=== PATIENT | male | born 1955 | race Caucasian/White ===

== ENCOUNTER 2019-08-03 14:56 | Emergency (ER) | payer OTHER, SELFPAY ==
[2019-08-03 14:58] VITALS: BP 157/75; PULSE 80; RESP 18; TEMP 36.6; O2SAT 100; BMI 29.4
--- NOTE | 2019-08-03 15:20 | ED.DCSUM_ITS ---
- ER Visit Summary Date of Service: 08/03/19 Chief Complaint: Left shoulder pain History of Present Illness: The patient is a 64 M who has left shoulder pain. He is been having this pain for 2 weeks. He denies any injuries. He has mostly aching but then intermittent sharp pains. Is worse with movement today. Nothing makes it better. He denies any neck pain. He also has some pain in the scapular region that radiates down to the left wrist. He has never had anything like this before. No chest pain or shortness of breath. His father did have early cardiac disease and of an PA. The patient currently denies any medical history and takes no medications Physical Examination: Vital signs reviewed. HEENT exam unremarkable. Heart is regular rate and rhythm without murmurs. Lungs are clear to auscultation. Abdomen is soft and nontender. Extremities reveal no edema. His left shoulder is nontender. He has full range of motion without any discomfort. His pulses are equal bilaterally. Skin exam normal. Neurologic exam normal. Test Results: Left shoulder x-ray normal. Troponin normal. EKG sinus rhythm with rate of 72. No ST changes. Normal intervals Emergency Department Course and Treatment: Patient declined any pain medications. His x-rays are negative. My concern is this could be a cervical radiculopathy. His cardiac work-up is negative. I will give him steroids for a couple of days to see if this will help. He will contact his doctor this week Treatment Plan: [] Disposition: Discharge Impression: Left shoulder pain This note was generated with [employer] dictation software. It may contain incorrect words, spelling, and punctuation that were not noted in review of the chart prior to signing ED Disposition - Plan for ED Patient: Referrals: Mat Alanis DO [Primary Care Provider] -
--- NOTE | 2019-08-03 15:20 | EKG12_ITS ---
Test Reason : EXTREMITY PAIN Blood Pressure : / mmHG Vent. Rate : 072 BPM Atrial Rate : 072 BPM P-R Int : 160 ms QRS Dur : 084 ms QT Int : 374 ms P-R-T Axes : 056 022 023 degrees QTc Int : 409 ms Normal sinus rhythm Normal ECG Confirmed by SPENCER DOOLEY, VICKI ([id number]), photography editor ENEDINA ORDAZ ([id number]) on 08/05/2019 9:35:52 AM Referred By: MILADY Confirmed By:JOSE PALMER MD
--- NOTE | 2019-08-03 16:04 | RAD_ITS ---
STUDY: X-RAY - LEFT SHOULDER REASON FOR EXAM: Male, 64 years old. Shoulder pain TECHNIQUE: 4 view(s) of the shoulder. COMPARISON: None. FINDINGS: Normal glenohumeral articulation. Normal acromioclavicular joint. Normal acromion. Normal humeral head and visualized proximal humerus. The soft tissue structures are unremarkable. Normal visualized pulmonary apex. RAD/Shoulder min 2 Views IMPRESSION: Normal x-ray examination of the shoulder. Electronically Signed: Yoav Bedoya MD at 16:41 EST Tel , Service support ,
--- NOTE | 2019-08-03 16:44 | ED.DEP ---
ED Disposition - Plan for ED Patient: Disposition: Home or Assisted Living Instructions: RADICULOPATHY, Cervical Prescriptions: Prednisone [Deltasone] 40 mg PO DAILY #10 tab Prescription Printed Referrals: Mat Alanis DO [Primary Care Provider] -
== END 2019-08-03 17:01 | disposition home or self-care (01) ==
PROVIDERS: Emergency Provider Emergency Medicine; Family Provider Preventive Medicine Occupational Medicine; PCP Preventive Medicine Occupational Medicine
DX: M25.512 Pain in left shoulder (principal)
CPT/HCPCS: 73030; 84484; 93005; 99283; A4216

== ENCOUNTER 2019-08-10 07:33 | Day surgery (SDC) | payer OTHER, SELFPAY ==
[2019-08-10] VITALS (7 sets, daily range): BP systolic 113–137; BP diastolic 78–91; PULSE 78–100; RESP 15–16; TEMP 36.7–37.8; O2SAT 95–100; BMI 27.4
[2019-08-10] MEDS: Lactated Ringers 1,000 ML 75 ML IV (07:59)
--- NOTE | 2019-08-10 09:23 | PCM.HP.STD ---
Problem List (1) Screening for intestinal cancer Status: Acute History of Present Illness Date of Admission: 08/10/19 The patient is a 64 year old M who presents for screening colonoscopy today. He has never had a previous screening colonoscopy. Other than a pinched nerve in his left arm he has no chronic medical conditions. He states that he is not on any blood thinners. He denies any heart or lung disease. Is not had any blood clots. There is no family history of colon cancer. Past Medical History Allergies No Known Allergies Allergy (Verified 08/10/19 07:51) Home Medications: Ambulatory Orders Medication Instructions Recorded NK 08/03/19 Smoking Status: Never smoker Tobacco Use: Non-smoker Review of Systems HEENT: Denies: Difficulty Swallowing Cardiovascular: Denies: Chest Pain Respiratory: Denies: Shortness of Breath Gastrointestinal: Denies: Abdominal Pain, Melena VTE Information - Inpt Only VTE Present on Admission: No Patient Problems: Active and Suspected Problems Screening for intestinal cancer (Acute) - Physical Exam Vitals/I&O's: Vital Signs Temp Pulse Resp BP Pulse Ox 98.1 F 80 15 119/78 100 08/10/19 07:51 08/10/19 07:51 08/10/19 07:51 08/10/19 07:51 08/10/19 07:51 Oxygen Delivery Method Room Air Weight: 188 lb 7.924 oz Body Mass Index (BMI) 27.4 General: Alert, Oriented x3, Cooperative Oral: Moist Mucosa Lungs: Clear to auscultation, Normal air movement Cardiovascular: Regular rate, Regular Rhythm Abdomen: Bowel Sounds Present, Soft, Non Tender Extremities: No Calf Tenderness Psych/Mental Status: Normal Affect Current Medications Lactated Ringer's () 1,000 mls @ 75 mls/hr IV .[id number] [facility] Last Admin: 08/10/19 07:59 Dose: 75 mls/hr Documented by: Assessment/Plan All Active Problems Screening for intestinal cancer (Acute) The patient presents via our open access program today. He has never had a previous colonoscopy. I plan to proceed with a colonoscopy with possible biopsy or polypectomy is indicated. He has had an opportunity to ask and have questions answered. We will proceed as noted. Mat Lerner M.D., F.A.C.S.
--- NOTE | 2019-08-10 09:51 | OP.COLON_ITS ---
Patient Name: Boris Montiel Procedure Date: 08/10/2019 9:28 AM Date of : 1955 Age: 64 Procedure: Colonoscopy Indications: Screening for colorectal malignant neoplasm Providers: Mat Lerner MD Referring MD: Mat Alanis Medicines: Midazolam 5 mg IV, Meperidine 100 mg IV Patient Profile: Last Colonoscopy: none. The patient's first colonoscopy is today. Complications: No immediate complications. Procedure: Pre-Anesthesia Assessment: - Prior to the procedure, a History and Physical was performed, and patient medications and allergies were reviewed. The patient's tolerance of previous anesthesia was also reviewed. The risks and benefits of the procedure and the sedation options and risks were discussed with the patient. All questions were answered, and informed consent was obtained. Prior Anticoagulants: The patient has taken no previous anticoagulant or antiplatelet agents. ASA Grade Assessment: II - A patient with mild systemic disease. After reviewing the risks and benefits, the patient was deemed in satisfactory condition to undergo the procedure. After I obtained informed consent, the scope was passed under direct vision. Throughout the procedure, the patient's blood pressure, pulse, and oxygen saturations were monitored continuously. The colonoscope was introduced through the anus and advanced to the cecum, identified by appendiceal orifice and ileocecal valve. The colonoscopy was performed without difficulty. The patient tolerated the procedure well. The quality of the bowel preparation was good. The ileocecal valve and the appendiceal orifice were photographed. Moderate Sedation: Moderate (conscious) sedation was personally administered by the endoscopist. The following parameters were monitored: oxygen saturation, heart rate, blood pressure, and response to care. Total physician intraservice time was 15 minutes. Scope In: 9:37:34 AM Scope Withdrawal Time 0 hours 6 minutes 40 seconds Scope Out: 9:46:38 AM Total Procedure Duration Time 0 hours 9 minutes 4 seconds Findings: The perianal and digital rectal examinations were normal. Multiple diverticula were found in the sigmoid colon. The exam was otherwise without abnormality. Impression: - Diverticulosis in the sigmoid colon. - The examination was otherwise normal. - No specimens collected. Recommendation: - Discharge patient to home. - Resume previous diet. - Continue present medications. - Repeat colonoscopy in 10 years for screening purposes. Procedure Code(s): --- Professional --- 18511, Colonoscopy, flexible; diagnostic, including collection of specimen(s) by brushing or washing, when performed (separate procedure) 37156, 59, Moderate sedation services provided by the same physician or other qualified health career services officer performing the diagnostic or therapeutic service that the sedation supports, requiring the presence of an independent trained observer to assist in the monitoring of the patient's level of consciousness and physiological status; initial 15 minutes of intraservice time, patient age 5 years or older Diagnosis Code(s): --- Professional --- Z12.11, Encounter for screening for malignant neoplasm of colon K57.30, Diverticulosis of large intestine without perforation or abscess without bleeding CPT copyright 2017 [employer]. All rights reserved. The codes documented in this report are preliminary and upon clinical coder review may be revised to meet current compliance requirements. Mat Lerner MD 08/10/2019 9:51:35 AM This report has been signed electronically. Number of Addenda: 0 Note Initiated On: 08/10/2019 9:28 AM
== END 2019-08-10 10:36 | disposition home or self-care (01) ==
LOC: EN 07:33 → AC 07:34
PROVIDERS: Family Provider Preventive Medicine Occupational Medicine; PCP Preventive Medicine Occupational Medicine; Referring Provider Preventive Medicine Occupational Medicine; Visit Provider Surgery
PROC: 0DJD8ZZ Inspection of Lower Intestinal Tract, Via Natural or Artificial Opening Endoscopic (ICD-10-PCS; CPT 45378; principal; 2019-08-10 08:55)
DX: Z12.11 Encounter for screening for malignant neoplasm of colon (principal); G58.8 Other specified mononeuropathies; K57.30 Diverticulosis of large intestine without perforation or abscess without bleeding
CPT/HCPCS: 45378; 99152; 99153; J7120

== ENCOUNTER → 2020-10-01 16:29 | Outpatient (CLI) | payer OTHER, SELFPAY ==
--- NOTE | 2020-10-01 | BRBX_PTH ---
PATIENT: JENSEN AGUERO LOC: [facility] U#:[id number] AGE/SX: 70/M ROOM: RE10/01/[address]: Dr. Mat Lerner MD : 1955 BED: DIS: SPEC #: [id number] RECD: 10/01/20 13:24 STATUS: YUMIKO ALCIRA #: [id number] MICHELLE: 10/01/20 00:[address]: Mat Lerner DEPT: SURGICAL PATHOLOGY RECD BY: Gray Muñoz ENTERED: 10/02/20 12:30 SP TYPE: BREAST BX OTHR DR: Dr. Mat Alanis DO Tissues: Right breast, NOS Procedures: Surgery Specimen Level IV HEADER OPERATION: Ultrasound-guided needle core biopsy, right breast PRE-OP DIAGNOSIS: Right breast mass TISSUE SUBMITTED: Right breast biopsy ISCHEMIC TIME: 1 minute FIXATION TIME: 30.5 hours MICROSCOPIC DIAGNOSIS Right breast mass, ultrasound-guided core biopsy: Consistent with gynecomastia. AM:noe 10/03/2020 MICROSCOPIC DESCRIPTION Slides are reviewed. GROSS DESCRIPTION Received in fixative is one container labeled with the patient's name and designated right breast biopsy. The specimen consists of multiple irregular and elongated fragments of light eng soft tissue that in aggregate measure 2.2 x 1 x 0.2 cm. The specimen is totally submitted in one cassette. / AM:noe 10/02/20 TC:5 CPT: 64396
[2020-10-01 12:54] VITALS: BMI 27.6
== END ==
PROVIDERS: PCP Preventive Medicine Occupational Medicine; Referring Provider Surgery; Visit Provider Surgery
DX: N63.10 Unspecified lump in the right breast, unspecified quadrant (principal)
CPT/HCPCS: 88305

== ENCOUNTER → 2022-07-20 | Outpatient (CLI) | payer BC, SELFPAY ==
[2022-07-20 11:24] LABS: PSA,Total- Diagnostic 3.91 ng/mL (0.0-4.0)
== END | disposition home or self-care (01) ==
LOC: LAB 10:26
PROVIDERS: PCP Preventive Medicine Occupational Medicine; Referring Provider Urology; Visit Provider Urology
DX: R97.20 Elevated prostate specific antigen [PSA] (principal)
CPT/HCPCS: 36415; 84153

== ENCOUNTER → 2024-09-11 | Outpatient (CLI) | payer BC, SELFPAY ==
--- NOTE | 2024-09-10 16:30 | LES_PTH ---
PATIENT: JENSEN AGUERO LOC: [facility] U#:[id number] AGE/SX: 69/M ROOM: RE09/11/[address]: Dr. Pedro Pablo Francisco MD : 1955 BED: DIS: 09/11/2024 SPEC #: [id number] RECD: 09/11/24 13:30 STATUS: YUMIKO ALCIRA #: [id number] MICHELLE: 09/10/24 16:[address]: Pedro Pablo Francisco DEPT: SURGICAL PATHOLOGY RECD BY: Julio He ENTERED: 09/11/24 13:30 SP TYPE: Lesion OTHR DR: Dr. Mat Alanis, DO Tissues: Skin of eyelid, NOS Procedures: Surgery Specimen Level IV HEADER OPERATION: Right upper eyelid lesion excision PRE-OP DIAGNOSIS: Possible seborrheic keratosis TISSUE SUBMITTED: Right upper eyelid lesion MICROSCOPIC DIAGNOSIS Right upper eyelid lesion, excisional biopsy: Seborrheic keratosis. Negative for malignancy. SJ.mr 09/12/2024 MICROSCOPIC DESCRIPTION Slides are reviewed. GROSS DESCRIPTION Received in fixative is one container labeled with the patient's name and designated Right upper eyelid lesion. The specimen consists of a piece of light brown skin measuring 1.1 x 0.5 x 0.1cm. The specimen is inked, serially sectioned and submitted entirely in one cassette. . 09/11/2024 TC:5 CPT:[id number]
== END | disposition home or self-care (01) ==
PROVIDERS: PCP Preventive Medicine Occupational Medicine; Referring Provider Ophthalmology; Visit Provider Ophthalmology
DX: L82.1 Other seborrheic keratosis (principal)
CPT/HCPCS: 88305